=== PATIENT | male | born 1985 | race Caucasian/White ===

== ENCOUNTER 2017-02-09 08:44 | Emergency (ER) | payer SELFPAY ==
[~2017-02-09] VITALS: Ht 165.1 cm; Wt 90.0 kg
[~2017-02-09 08:44] MED LIST: NO MEDS
[2017-02-09 08:46] VITALS: Ht 165.1 cm; Wt 90.0 kg
[2017-02-09] MEDS ORDERED: LIDOCAINE/MYLANTA 4 ML (PO SYG) PO ONE (11:00)
[2017-02-09] MEDS ORDERED: HYDROCODONE/APAP (5/325) TAB PO ONE (11:00)
[2017-02-09] MEDS ORDERED: LIDOCAINE/MYLANTA 40 ML BTL PO ONE (11:30)
--- NOTE | 2017-02-09 12:50 | RADRPT ---
PROCEDURE: CT Abdomen and pelvis without contrast. CLINICAL INDICATION: Fever, vomiting, abdominal pain. TECHNIQUE: CT scan of the abdomen and pelvis without contrast was performed on a multidetector hig h-resolution CT scan. . Coronal and sagittal reformatted images were obtained from the axial [facility] e images. Standard CT scan of the abdomen pelvis without contrast protocols were performed. The total exam CTDI equals 12.83 mGy and the total exam DLP equals 786.55 mGy-cm. One or more of the following dose reduction techniques were used: - Automated exposure control. - Adjustment of the mA and/or kV according to patient size. Use of iterative reconstruction technique. COMPARISON: None. FINDINGS: The stomach, small bowel, large bowel and appendix are unremarkable. No CT evidence of appendicitis or diverticulitis. Negative for intra-abdominal free air, free fluid, abscesses or lymphadenopathy. Kidneys are normal in size without calcified renal calculi, hydronephrosis or intra renal masses virgilio aterally. Urinary bladder and prostate are unremarkable. Liver normal in size with hepatic fatty infiltration. No focal hepatic lesions. Spleen pancreas adre nal glands and gallbladder are unremarkable. No evidence of biliary ductal dilation. Abdominal pelvic wall unremarkable. Aorta unremarkable. Lung bases unremarkable. Minimal degenerativ e changes lower thoracic and lumbar spine without acute osseous findings or osteoblastic/osteolytic lesions. IMPRESSION: 1. No evidence of gastrointestinal disease. Negative CT evidence of diverticulitis or appendicitis. 2. No calcified urinary calculi or obstructive uropathy. 3. Negative intra-abdominal free air fluid abscesses or lymphadenopathy. RPTAT:AAJJ Physician Sharon Date Time Electronically viewed and signed by Physician Sharon on 02/09/2017 12:49 BM/
--- NOTE | 2017-02-09 13:04 | ERD ---
ER Documentation Chief Complaint Chief Complaint ABD PAIN YESTERDAY WITH VOMITING, FEVER HPI This is a 31-year-old male who presents emergency department today complaining of abdominal pain that started yesterday, fever and vomiting. Patient states that he had a fever of 102. States that his abdominal pain is about the same. States he also had a rash all over his body but took Benadryl and that has helped. Has any body aches, URI symptoms. ROS All systems reviewed and are negative except as per history of present illness. Medications Home Meds Active Scripts Famotidine* (Pepcid*) 20 Mg Tablet, 20 MG PO BID for 10 Days, TAB Prov:JARRETT JONES PA-C 02/09/17 Acetaminophen* (Tylophen*) 500 Mg Capsule, 1 CAP PO Q6H Y for PAIN AND OR ELEVATED TEMP, #30 CAP Prov:JARRETT JONES PA-C 02/09/17 Reported Medications [No Meds] No Conflict Check 04/13/10 Allergies Allergies: Coded Allergies: No Known Allergies (Verified Allergy, Mild, 02/09/17) PMhx/Soc Medical and Surgical Hx: pt denies Medical Hx, pt denies Surgical Hx History of Surgery: No Anesthesia Reaction: No Hx Neurological Disorder: No Hx Respiratory Disorders: No Hx Cardiac Disorders: No Hx Psychiatric Problems: No Hx Miscellaneous Medical Probl: No Hx Alcohol Use: Yes () Hx Substance Use: No Hx Tobacco Use: No Smoking Status: Never smoker Physical Exam Vitals Vital Signs Date Time Temp Pulse Resp B/P Pulse Ox O2 Delivery O2 Flow Rate FiO2 02/09/17 08:46 983.1 17 16 147/94 100 Physical Exam Const: NAD Head: Atraumatic Eyes: Normal Conjunctiva ENT: Normal External Ears, Nose and Mouth. Neck: Full range of motion..~ No meningismus. Resp: Clear to auscultation bilaterally Cardio: Regular rate and rhythm, no murmurs Abd: Soft,epigastric RLQ, LLQ pain non distended. Normal bowel sounds. No specific tenderness at McBurney's. Skin: No petechiae or rashes Back: No midline or flank tenderness Ext: No cyanosis, or edema Neur: Awake and alert Psych: Normal Mood and Affect Result Diagram: 02/09/17 1110 02/09/17 1110 Results 24 hrs Laboratory Tests Test 02/09/17 11:10 White Blood Count 7.810^3/ul Red Blood Count 5.3110^6/ul Hemoglobin 16.6g/dl Hematocrit 49.1% Mean Corpuscular Volume 92.5fl Mean Corpuscular Hemoglobin 31.3pg Mean Corpuscular Hemoglobin Concent 33.8g/dl Red Cell Distribution Width 12.8% Platelet Count 55203^3/UL Mean Platelet Volume 10.5fl Neutrophils % 62.4% Lymphocytes % 23.9% Monocytes % 9.5% Eosinophils % 3.0% Basophils % 0.3% Nucleated Red Blood Cells % 0.0/100WBC Neutrophils # 4.910^3/ul Lymphocytes # 1.910^3/ul Monocytes # 0.710^3/ul Eosinophils # 0.210^3/ul Basophils # 0.010^3/ul Nucleated Red Blood Cells # 0.010^3/ul Urine Color YELLOW Urine Clarity CLEAR Urine pH 5.0 Urine Specific [place] 1.027 Urine Ketones NEGATIVEmg/dL Urine Nitrite NEGATIVEmg/dL Urine Bilirubin NEGATIVEmg/dL Urine Urobilinogen 1+mg/dL Urine Leukocyte Esterase NEGATIVELeu/ul Urine Microscopic RBC 4/HPF Urine Microscopic WBC 6/HPF Urine Mucus FEW/HPF Urine Hemoglobin 1+mg/dL Urine Glucose NEGATIVEmg/dL Urine Total Protein NEGATIVEmg/dl Sodium Level 143mmol/L Potassium Level 4.0mmol/L Chloride Level 103mmol/L Carbon Dioxide Level 28mmol/L Anion Gap 16 Blood Urea Nitrogen 14mg/dl Creatinine 1.05mg/dl Glucose Level 97mg/dl Calcium Level 9.4mg/dl Total Bilirubin 0.8mg/dl Direct Bilirubin 0.00mg/dl Indirect Bilirubin 0.8mg/dl Aspartate Amino Transf (AST/SGOT) 132IU/L Alanine Aminotransferase (ALT/SGPT) 285IU/L Alkaline Phosphatase 90IU/L Total Protein 8.2g/dl Albumin 4.5g/dl Globulin 3.70g/dl Albumin/Globulin Ratio 1.21 Lipase 33U/L Current Medications Medications (Trade) Dose Ordered Sig/Miles Route PRN Reason Start Time Stop Time Status Last Admin Dose Admin Miscellaneous Medication (Gi Cocktail (2) (Ped)) 4 ml ONCE ONCE PO 02/09/17 11:00 02/09/17 11:01 DC Acetaminophen/ Hydrocodone Bitart (Redfox (5/325)) 1 tab ONCE ONCE PO 02/09/17 11:00 02/09/17 11:01 DC 02/09/17 11:11 Miscellaneous Medication (Gi Cocktail (2)) 40 ml ONCE ONCE PO 02/09/17 11:30 02/09/17 11:31 DC 02/09/17 11:11 DIAGNOSTIC IMAGING REPORT Patient: JAYASHREE CANTU : 1985 Age: 31 Sex: M MR #: [id number] DOS: 02/09/17 1226 Ordering MD: JARRETT JONES PA-C Location: [facility] Room/Bed: PROCEDURE: CT Abdomen and pelvis without contrast. CLINICAL INDICATION: Fever, vomiting, abdominal pain. TECHNIQUE: CT scan of the abdomen and pelvis without contrast was performed on a multidetector high-resolution CT scan. . Coronal and sagittal reformatted images were obtained from the axial source images. Standard CT scan of the abdomen pelvis without contrast protocols were performed. The total exam CTDI equals 12.83 mGy and the total exam DLP equals 786.55 mGy- cm. One or more of the following dose reduction techniques were used: - Automated exposure control. - Adjustment of the mA and/or kV according to patient size. Use of iterative reconstruction technique. COMPARISON: None. FINDINGS: The stomach, small bowel, large bowel and appendix are unremarkable. No CT evidence of appendicitis or diverticulitis. Negative for intra-abdominal free air, free fluid, abscesses or lymphadenopathy. Kidneys are normal in size without calcified renal calculi, hydronephrosis or intra renal masses bilaterally. Urinary bladder and prostate are unremarkable. Liver normal in size with hepatic fatty infiltration. No focal hepatic lesions. Spleen pancreas adrenal glands and gallbladder are unremarkable. No evidence of biliary ductal dilation. Abdominal pelvic wall unremarkable. Aorta unremarkable. Lung bases unremarkable. Minimal degenerative changes lower thoracic and lumbar spine without acute osseous findings or osteoblastic/osteolytic lesions. IMPRESSION: 1. No evidence of gastrointestinal disease. Negative CT evidence of diverticulitis or appendicitis. 2. No calcified urinary calculi or obstructive uropathy. 3. Negative intra-abdominal free air fluid abscesses or lymphadenopathy. RPTAT:AAJJ Physician Sharon Date Time Electronically viewed and signed by Mary Wall Physician on 02/09/2017 12:49 BM/ CC: JARRETT JONES PA-C Procedures/MDM This is a 31-year-old male who presents the emergency department today complaining of fever abdominal pain and vomiting that started yesterday. Patient indicated he had a fever 102. At intake patient did not have a fever however he still complained of some abdominal pain as well as a rash. Patient appear to have diffuse pain on abdominal exam that was nonspecific and therefore did obtain laboratory workup as well as imaging. Laboratory work shows no elevated white blood cell count. He is not anemic. Platelets are within normal limits. Electrolytes are within normal limits. Glucose is within normal limits. Liver enzymes are significantly elevated. Lipase is within normal limits. UA is negative for infection. The abdomen pelvis noncontrast evidence of GI disease. There is no CT evidence of diverticulitis or appendicitis. There is no calcified urinary calculi or obstructive uropathy. There is no free air or abscesses or lymphadenopathy. Patient has abdominal pain of uncertain etiology however low suspicion for acute surgical abdomen. Patient does have elevated liver enzymes and I have explained to the patient that he does need to follow-up with a primary care doctor in regards to this. I will give him a referral information for that. Did show me a picture of the rash that he had yesterday and it appeared to be urticarial in nature. He has no rash at this time and have low suspicion for SJS, meningitis, cellulitis, sepsis, deep space tracking infection. May continue taking his Benadryl. Patient was given a GI cocktail and Redfox here in the emergency department and pain resolved. Patient will be given a prescription for Pepcid and Tylenol for pain. At this time the patient is stable for discharge and outpatient management. Patient should follow up with their PCP in the next 1-2 days. They may return to the emergency department sooner for any persistent or worsening of symptoms. Patient understood and agreed with the plan. Departure Diagnosis: Primary Impression: Abdominal pain Abdominal location: generalized Qualified Code: R10.84 - Generalized abdominal pain Additional Impression: Elevated liver enzymes Condition: JARRETT Hill PA-C Feb 09, 2017 13:04
[2017-02-09] MEDS ORDERED: ACET500C5 PO (13:09)
[2017-02-09] MEDS ORDERED: FAMO-96 PO (13:10)
== END 2017-02-09 13:59 | disposition home or self-care (01) ==
LOC: FTE 08:44
DX: R10.84 Generalized abdominal pain (principal); R74.8 Abnormal levels of other serum enzymes
CPT/HCPCS: 36415; 74176; 80053; 81001; 83690; 85025

== ENCOUNTER 2018-12-28 13:55 | Emergency (ER) | payer MEDICAID ==
[~2018-12-28] VITALS: Ht 165.1 cm; Wt 87.8 kg
[~2018-12-28 13:55] MED LIST changes: +ACET500C5 PO; +FAMO-96 PO; +IBUP-1542 PO
[2018-12-28 14:44] VITALS: Ht 165.1 cm; Wt 87.8 kg
[2018-12-28] MEDS ORDERED: KETOROLAC 30 MG INJ IV STA (15:51)
[2018-12-28 17:15] VITALS: BP 150/87; PULSE 75; RESP 16
== END 2018-12-28 17:34 | disposition home or self-care (01) ==
LOC: E/R 13:55
DX: R07.9 Chest pain, unspecified (principal); R40.2142 Coma scale, eyes open, spontaneous, at arrival to emergency department; R40.2252 Coma scale, best verbal response, oriented, at arrival to emergency department; R40.2362 Coma scale, best motor response, obeys commands, at arrival to emergency department
CPT/HCPCS: 36415; 71045; 80048; 84484; 85025; 93005; J1885; Z7502